=== PATIENT | female | born 1980 | race Two or more races ===

== ENCOUNTER 2020-05-16 16:04 | Emergency (ER) | payer OTHER ==
[~2020-05-16] VITALS: Ht 160 cm; Wt 52.6 kg
== END 2020-05-16 21:40 | disposition home or self-care (01) ==
LOC: ER 16:04
DX: R07.0 Pain in throat (principal); B96.0 Mycoplasma pneumoniae [M. pneumoniae] as the cause of diseases classified elsewhere

== ENCOUNTER 2020-05-18 21:14 | Emergency (ER) | payer OTHER ==
[~2020-05-18] VITALS: Ht 160 cm; Wt 52.2 kg
[2020-05-18] MEDS ORDERED: DICLOFENAC SODI75 MG PO (23:10)
== END 2020-05-18 23:17 | disposition home or self-care (01) ==
LOC: ER 21:14
DX: M62.838 Other muscle spasm (principal)

== ENCOUNTER 2021-01-02 19:12 | Emergency (ER) | payer OTHER ==
[~2021-01-02] VITALS: Ht 160 cm; Wt 51.7 kg
[~2021-01-02 19:12] MED LIST: DICLOFENAC SODI75 MG PO
[2021-01-02] MEDS ORDERED: ZYRTEC10 MG PO (20:54)
[2021-01-02] MEDS ORDERED: TUSNEL LIQUID178 ML PO (20:54)
== END 2021-01-02 20:59 | disposition home or self-care (01) ==
LOC: ER 19:12
DX: J00 Acute nasopharyngitis [common cold] (principal); Z03.818 Encounter for observation for suspected exposure to other biological agents ruled out

== ENCOUNTER 2021-03-24 19:32 | Emergency (ER) | payer OTHER ==
[~2021-03-24] VITALS: Ht 162.6 cm; Wt 52.6 kg
[~2021-03-24 19:32] MED LIST changes: +TUSNEL LIQUID178 ML PO; +ZYRTEC10 MG PO
[2021-03-24] MEDS ORDERED: ZITHROMAX TRI-500 MG PO (22:51)
== END 2021-03-24 22:53 | disposition home or self-care (01) ==
LOC: ER 19:32
DX: A49.3 Mycoplasma infection, unspecified site (principal); R07.89 Other chest pain; Z20.822 Contact with and (suspected) exposure to COVID-19

== ENCOUNTER 2021-03-29 16:47 | Emergency (ER) | payer OTHER ==
[~2021-03-29] VITALS: Ht 170.2 cm; Wt 63.5 kg
[~2021-03-29 16:47] MED LIST changes: +ZITHROMAX TRI-500 MG PO
[2021-03-29] MEDS ORDERED: TYLENOL (18:06)
[2021-03-29] MEDS ORDERED: VISTARIL50 MG PO (18:10)
[2021-03-29] MEDS ORDERED: DICLOFENAC POTA50 MG PO (18:10)
[2021-03-29] MEDS ORDERED: FLONASE ALLERG9.9 ML NASAL (18:10)
[2021-03-29] MEDS ORDERED: PEPCID AC20 MG PO (18:10)
== END 2021-03-29 19:15 ==
LOC: ER 16:47 → EDBD 16:55 → ER 16:55
DX: U07.1 COVID-19 (principal); F41.8 Other specified anxiety disorders

== ENCOUNTER 2021-04-20 13:46 | Emergency (ER) | payer OTHER ==
[~2021-04-20] VITALS: Ht 160 cm; Wt 54.0 kg
[~2021-04-20 13:46] MED LIST changes: +DICLOFENAC POTA50 MG PO; +FLONASE ALLERG9.9 ML NASAL; +PEPCID AC20 MG PO; +TYLENOL; +VISTARIL50 MG PO
== END 2021-04-20 19:16 | disposition home or self-care (01) ==
LOC: ER 13:46
DX: B34.9 Viral infection, unspecified (principal); Z11.52 Encounter for screening for COVID-19

== ENCOUNTER 2021-10-04 00:41 | Emergency (ER) | payer OTHER ==
[~2021-10-04] VITALS: Ht 160 cm; Wt 52.2 kg
[2021-10-04] MEDS ORDERED: PHENAGIL TABLE1 EACH PO (04:01)
== END 2021-10-04 04:25 ==
LOC: ER 00:41
DX: U07.1 COVID-19 (principal)

== ENCOUNTER 2022-01-07 19:05 | Emergency (ER) | payer OTHER ==
[~2022-01-07] VITALS: Ht 160 cm; Wt 54.4 kg
[~2022-01-07 19:05] MED LIST changes: +PHENAGIL TABLE1 EACH PO
== END 2022-01-07 20:48 | disposition home or self-care (01) ==
LOC: ER 19:05
DX: J02.8 Acute pharyngitis due to other specified organisms (principal); B96.89 Other specified bacterial agents as the cause of diseases classified elsewhere; Z20.822 Contact with and (suspected) exposure to COVID-19

== ENCOUNTER 2023-01-26 14:40 | Emergency (ER) | payer OTHER ==
[~2023-01-26] VITALS: Ht 160 cm; Wt 58.5 kg
[2023-01-26 16:25] LABS: HEMATOCRIT 35.6 % (36.0-45.00); MEAN CELL VOLUME 78.7 fL (80.00-100.00); MEAN CORPUSCULAR HEMOGLOBIN 26.5 pg (27.00-32.0); MEAN CORPUSCULAR HGB CONC 33.7 g/dl (32.0-36.0); PLATELET COUNT 247 K/uL (150-450); RED BLOOD COUNT 4.52 M/uL (4.00-6.00); RED CELL DISTRIBUTION WIDTH 13.7 % (11.5-14.5)
== END 2023-01-26 17:26 | disposition home or self-care (01) ==
LOC: ER 14:40
PROVIDERS: General Practice
DX: J06.9 Acute upper respiratory infection, unspecified (principal); Z20.822 Contact with and (suspected) exposure to COVID-19

== ENCOUNTER 2023-04-12 17:41 | Emergency (ER) | payer OTHER ==
[~2023-04-12] VITALS: Ht 160 cm; Wt 58.1 kg
== END 2023-04-12 21:18 | disposition home or self-care (01) ==
LOC: ER 17:41
DX: H10.13 Acute atopic conjunctivitis, bilateral (principal)

== ENCOUNTER 2023-06-03 02:29 | Emergency (ER) | payer OTHER ==
[~2023-06-03] VITALS: Ht 160 cm; Wt 58.1 kg
[2023-06-03] MEDS ORDERED: FAMOTIDINE/PF 20 MG/2 ML VIAL IV PUSH STA (03:39)
[2023-06-03] MEDS ORDERED: HYOSCYAMINE SULFATE 0.125 MG TAB.SUBL SL ONE (03:45)
[2023-06-03 04:05] LABS: HEMATOCRIT 38.1 % (36.0-45.00); HEMOGLOBIN 12.5 g/dL (12.0-15.00); MEAN CELL VOLUME 79.9 fL (80.00-100.00); MEAN CORPUSCULAR HEMOGLOBIN 26.3 pg (27.00-32.0); MEAN CORPUSCULAR HGB CONC 32.9 g/dl (32.0-36.0); PLATELET COUNT 274 K/uL (150-450); RED BLOOD COUNT 4.77 M/uL (4.00-6.00); RED CELL DISTRIBUTION WIDTH 14.1 % (11.5-14.5)
[2023-06-03 04:25] LABS: AMYLASE 64 U/L (25-115); ANION GAP 6 (10.0-20.0); BLOOD UREA NITROGEN 14 mg/dL (7-18); BUN CREA RATIO 30 (7.0-25.0); CALCIUM 9.1 mg/dL (8.5-10.1); CARBON DIOXIDE 30 mEq/L (21-32); CHLORIDE 107 mmol/L (98-107); GFR 144.63; GLUCOSE FASTING 99 mg/dL (65-100); LIPASE 29 U/L (13-75); OSMOLALITY SERUM 278 MOSM/KG (275-295); POTASSIUM 4.14 mEq/L (3.5-5.1); SODIUM 139 mmol/L (136-145)
[2023-06-03 04:28] LABS: CREATININE SERUM 0.47 mg/dL (0.55-1.02); HCG QUANTITATIVE < 1 mUI/mL (1-3)
[2023-06-03 05:50] LABS: PH,URINE 7.5 (5.0-8.0); URINE APPEARANCE Clear; URINE BILIRRUBIN Negative (NEGATIVE); URINE BLOOD Negative; URINE COLOR Yellow; URINE GLUCOSE Negative (NEGATIVE); URINE LEUKOCYTE Negative; URINE NITRATE Negative; URINE PROTEIN Negative (NEGATIVE); URINE UROBILINOGEN 0.2 E.U./dl
[2023-06-03 05:53] LABS: URINE EPITHELIAL CELLS 4.9 uL (0.0-38.8)
[2023-06-03 06:04] LABS: URINE RBC 1.7 uL (0.0-20.8); URINE WBC 0.4 uL (0.0-23.2)
[2023-06-03] MEDS ORDERED: LEVSIN/SL0.125 MG SL (06:45)
[2023-06-03] MEDS ORDERED: PEPCID40 MG PO (06:45)
== END 2023-06-03 06:52 ==
LOC: ER 02:29
PROVIDERS: General Practice
DX: R10.2 Pelvic and perineal pain (principal); D25.9 Leiomyoma of uterus, unspecified

== ENCOUNTER 2024-12-07 14:58 | Emergency (ER) | payer OTHER ==
[~2024-12-07] VITALS: Ht 160 cm; Wt 54.4 kg
[~2024-12-07 14:58] MED LIST changes: +ACETAMINOPHEN650 M2 PO; +BENADRYL ALLERG25 MG PO; +LEVSIN/SL0.125 MG SL; +MEDROLPACK PO; +PEPCID40 MG PO
[2024-12-07 15:21] VITALS: BP 110/60; O2SAT 98
[2024-12-07] MEDS ORDERED: 0.9 % SODIUM CHLORIDE 1,000 ML IV ONE (16:45)
[2024-12-07] MEDS ORDERED: KETOROLAC TROMETHAMINE 30 MG VIAL IV ONE ×2 (16:45→19:30)
[2024-12-07] MEDS ORDERED: KETOROLAC TROMETHAMINE 30 MG VIAL ONE ×2 (16:45→19:36)
[2024-12-07] MEDS ORDERED: FAMOtidine 10 MG/ML (4ML VIAL) IV ONE (16:45)
[2024-12-07] MEDS ORDERED: FAMOTIDINE/PF 20 MG/2 ML VIAL ONE (16:46)
[2024-12-07 17:30] LABS: BASO % 0.2 % (0.1-1.2); EOS # 0.00 (0.04-0.54); EOS % 0.0 % (0.7-7.0); LYMPH # 1.70 (1.18-3.74); LYMPH % 31.9 % (19.3-53.1); MEAN PLATELET VOLUME 9.50 fl (9.4-12.4); MONO # 0.40 (0.24-0.82); MONO % 7.5 % (4.7-12.5); NEUT # 3.21 (1.56-6.13); NEUT % 60.2 % (34.0-71.1); RED CELL DISTRIBUTION WIDTH 14.1 % (11.6-14.4)
[2024-12-07 18:02] LABS: INR 0.96
[2024-12-07 18:12] LABS: URINE APPEARANCE Clear; URINE BILIRRUBIN Negative (NEGATIVE); URINE BLOOD Small; URINE COLOR Yellow; URINE GLUCOSE Negative (NEGATIVE); URINE KETONE Negative (NEGATIVE); URINE LEUKOCYTE Negative; URINE NITRATE Negative; URINE PROTEIN Negative (NEGATIVE); URINE UROBILINOGEN 0.2 E.U./dl
[2024-12-07 18:15] LABS: URINE BACTERIA 1464.0 uL (0.0-1933); URINE EPITHELIAL CELLS 14.1 uL (0.0-38.8); URINE RBC 31.5 uL (0.0-20.8); URINE WBC 10.9 uL (0.0-23.2)
[2024-12-07 18:16] LABS: URINE CAST 0.29 uL (0.0-1.40)
[2024-12-07 18:29] LABS: ALT/SGPT 22 U/L (12-78); AST/SGOT 21 U/L (15-37); BILIRUBIN TOTAL 0.19 mg/dL (0.3-1.2); BUN CREA RATIO 26 (7.0-25.0); CREATININE SERUM 0.57 mg/dL (0.55-1.02); GFR 114.70; GLOBULINA 4.0 G/DL (2.4-3.5); GLUCOSE FASTING 75 mg/dL (65-100); OSMOLALITY SERUM 284 MOSM/KG (275-295)
[2024-12-07 18:30] LABS: HCG QUANTITATIVE < 1 mUI/mL (1-3)
[2024-12-07] MEDS ORDERED: METRONIDAZOLE500 MG PO (20:53)
[2024-12-07] MEDS ORDERED: PROBIOTIC1 EAC2 PO (20:53)
[2024-12-07] MEDS ORDERED: PEPCID AC20 MG PO (20:53)
[2024-12-07] MEDS ORDERED: CIPRO500 MG PO (20:53)
[2024-12-07] MEDS ORDERED: LEVSIN/SL0.125 MG SL (20:53)
== END 2024-12-07 21:01 | disposition home or self-care (01) ==
LOC: ER 14:58
PROVIDERS: General Practice
DX: R10.32 Left lower quadrant pain (principal); K52.89 Other specified noninfective gastroenteritis and colitis